=== PATIENT | male | born 1930 | race Caucasian/White ===

== ENCOUNTER 2018-04-22 13:04 | Inpatient (IN) | payer MEDICARE, OTHER ==
[~2018-04-22] VITALS: Ht 167.6 cm; Wt 82.5 kg
[2018-04-22] VITALS (15 sets, daily range): BP systolic 85–115; BP diastolic 48–67; BMI 28.8
--- NOTE | ~2018-04-22 | OP ---
PATIENT NAME: KB GERMAN MEDICAL RECORD: [id number] :[birth year] LOCATION:[facility] ADMISSION DATE:04/22/18 SURGEON: ELFEGO PERRY MD DATE OF OPERATION: 04/22/2018 DATE OF SERVICE: 04/22/2018 PROCEDURES: 1. PTCA stent LAD. 2. Left heart catheterization. 3. Selective coronary angiography. 4. Left ventriculogram. INDICATION: Acute anterior myocardial infarction. PROCEDURE IN DETAIL: After informed consent was obtained and after a detailed description of risks, benefits as well as alternative therapies, the patient elected to proceed with angiogram and angioplasty. The right femoral area was prepped and draped in normal sterile fashion. Right femoral artery was cannulated via modified Seldinger technique with placement of 6-Armenian sheath. All catheters exchanged through this sheath. FINDINGS: Left ventriculogram was performed in standard 30-degree RANDLE view reveals apical akinesis, ejection fraction in the 35% range. SELECTIVE CORONARY ANGIOGRAPHY: 1. Left main is with no significant angiographic disease. 2. Left anterior descending has 99.9% stenosis with OLIVA-1 flow. 3. The left circumflex has smco-ai-iwozmwnq irregularities, but no flow-limiting stenosis. 4. Right coronary has rpky-nk-vwotrhlw irregularities, but no flow-limiting stenosis. PTCA STENT OF THE LAD: The stent used was a 3.0 x 30 mm Integrity. Result was 0% residual stenosis. OVERALL IMPRESSION: Successful percutaneous transluminal coronary angioplasty stent of the left anterior descending going from 99.9% initial stenosis with OLIVA-1 flow to 0% residual stenosis with OLIVA-3 flow. TRANSINT:[id number] Voice Confirmation ID: [id number] DOCUMENT ID: [id number] ELFEGO PERRY MD at 1059 CC: [id number] DICTATION DATE: 04/22/18 1325 RN NEW GRAD: 04/22/18 1332 [place] [address]
--- NOTE | ~2018-04-22 | HEMODYNAMI ---
PATIENT:KB GERMAN MEDICAL RECORD: [id number] : [birth year] LOCATION:[facility] ADMISSION DATE: 04/22/18 Generatedon:04/22/201813:50 Patient name: KB GERMAN Patient #: [id number] SSN: : Date of study: 04/22/2018 Page: Of Hemodynamic Procedure Report Patient Data Patient Demographics Procedure consent was obtained First Name: KB Gender: Male Last Name: MAXI : 1930 Patient #: [id number] Age: 87 year(s) Race: Unknown Additional ID: [id number] Contact details [address]: [address] [place] [address] State: [place] City: [place] Zip code: [address] Admission Admission Data Admission Date: 04/22/2018 Admission Time: 13:04 Procedure Procedure Types Cath Procedure Diagnostic Procedure LHC LHC w/Coronaries PCI Procedure AMI/SVG/CENTER AISLE CASHIER PTCA or Stent AMI-BMS/JORGE Initial Procedure Description Procedure Date Procedure Date: 04/22/2018 Procedure Start Time: 13:10 Procedure End Time: 13:25 Procedure Staff Name Function Maritza Foss RT Monitor Aung Boothe MD Performing Physician Mary Kay Colvin RT Scrub Mar Hyman RN Manager Concrete Procedure Data Cath Procedure Fluoroscopy Diagnostic fluoroscopy Total fluoroscopy Time: 3.9 time: 3.9 min min Diagnostic fluoroscopy Total fluoroscopy dose: 802 dose: 802 mGy mGy Contrast Material Contrast Material Type Amount (ml) Isovue 300 104 Entry Location Entry Primary Successful Side Size Upsize Upsize Entry Closure Succes sful Closure Location (Fr) 1 (Fr) 2 (Fr) Remarks Device Remarks Femoral Right 6 Fr Exoseal artery Short Estimated blood loss: 5 ml Diagnostic catheters Device Type Used For End Catheter Placement MULTIPACK Pigtail 5 Fr LV Angiography catheter MULTIPACK JL 4.0 5Fr Left Coronary catheter Angiography MULTIPACK 3DRC 5Fr Procedure catheter Procedure Complications No complications Procedure Medications Medication Administration Route Dosage 0.9% NaCl I.V. 100 ml/hr Oxygen etCO2 Nasal cannula 2 l/min Lidocaine 2% added to field 20 Heparin Flush Bag added to field 2 bags (1000units/500ml NS) Heparin Bolus I.V. 4000 units Versed I.V. 2 mg Fentanyl I.V. 50 mcg Versed I.V. 1 mg Integrilin (Bolus I.V. 7.3 ml 2mg/ml) Hemodynamics Rest Heart Rate: 84 (bpm) Snapshots Pre Cath Intra NCS Post Cath Vital Signs Time Heart Resp SPO2 etCO2 NIBP Rhythm Pain Sedation Rate (ipm) (%) (mmHg) (mmHg) Status Level (bpm) 13:06:00 84 10 98 48 119/71(94) NSR 0 (11) 10(A) , No pain 13:10:16 81 12 100 45.1 120/64(84) NSR 0 (11) 10(A) , No pain 13:15:13 89 13 100 44.3 107/65(84) NSR 0 (11) 10(A) , No pain 13:19:23 88 22 98 35 102/68(85) NSR 0 (11) 10(A) , No pain 13:23:30 87 16 92 46.6 119/71(91) NSR 0 (11) 10(A) , No pain 13:37:08 90 9 96 44.3 112/71(81) NSR 0 (11) 10(A) , No pain Medications Time Medication Route Dose Verified Delivered Reason Notes Effectiveness by by 12:53:26 0.9% NaCl I.V. 100 Aung Mar used for ml/hr Tl Hyman brownfield program coordinator 12:53:33 Oxygen etCO2 2 Aung Mar used for Nasal l/min Tl Hyman procedure cannula RN 12:53:39 Lidocaine 2% added 20ml Aung Horan for local to vial Tl Boothe MD anesthetic field 12:53:44 Heparin Flush added 2 Aung Aung used for Bag to bags Tl Boothe MD procedure (1000units/500ml field NS) 13:05:32 Heparin Bolus I.V. 4000 Aung Mar for verif ied units Tl Hyman anticoagulation with Dr. LONDON Boothe 13:08:38 Integrilin I.V. 7.3 Aung Mar for waste d (Bolus 2mg/ml) ml Tl Hyman anticoagulation 2.7mL RN 13:10:10 Versed I.V. 2 mg Aung Manuel for sedation Tl yHman RN 13:10:17 Fentanyl I.V. 50 Aung Manuel for sedation mcg Tl Hyman RN 13:13:31 Versed I.V. 1 mg Aung Manuel for sedation Tl Hyman RN Procedure Log Time Note 12:40:26 Maritza Foss RT(R) sent for patient. Start room use. 12:53:26 0.9% NaCl 100 ml/hr I.V. was administered by Mar Hyman RN; used for procedure; 12:53:33 Oxygen 2 l/min etCO2 Nasal cannula was administered by Mar Hyman RN; used for procedure; 12:53:39 Lidocaine 2% 20ml vial added to field was administered by Aung Boothe MD; for local anesthetic; 12:53:44 Heparin Flush Bag (1000units/500ml NS) 2 bags added to field was administered by Aung Boothe MD; used for procedure; 12:59:48 Time tracking: Regular hours (M-F 7:00 - 5:00) 12:59:52 Plan of Care:Hemodynamics will remain stable., Cardiac rhythm will remain stable., Comfort level will be maintained., Respiratory function will remain adequate., Patient/ family verbilizes understanding of procedure., Procedure tolerated without complication., Recovers from procedure without complications.. 12:59:57 Patient received from ED to CCL 1 Alert and oriented. Tansferred to table in Supine position. 13:00:04 Warm blankets applied, and sarha hugger turned on for patient comfort. 13:00:05 Correct patient and procedure confirmed by team. 13:00:06 Signed procedure consent form obtained from patient. 13:00:07 ECG and BP/O2 sat monitors applied to patient. 13:04:58 Vital chart was started 13:05:32 Heparin Bolus 4000 units I.V. was administered by Mar Hyman RN; for anticoagulation; verified with Dr. Boothe 13:05:41 Baseline sample Acquired. 13:05:42 Full Disclosure recording started 13:05:46 H&P Date Dictated: 04/22/2018 New H&P dictated by physician.. 13:05:47 Pre-procedure instructions explained to patient. 13:05:50 Pre-op teaching completed and patient verbalized understanding. 13:05:51 Family unavailable. 13:05:53 Patient NPO since Breakfast. 13:05:56 Is the patient allergic to Iodine/contrast media? No. 13:05:57 Was the patient premedicated? No 13:06:00 Is patient on blood thinner?Yes 13:06:05 ACC The patient was administered the following blood thiners within the last 24 hours: ACCPlavix, ACCHeparin 13:06:07 Patient diabetic? Unknown. 13:06:10 Previous problem with sedation/anesthesia? No ? 13:06:13 Snore? Unknown 13:06:14 Sleep apnea? Unknown 13:06:16 Deviated septum? Unknown 13:06:17 Opens mouth fully? Unknown 13:06:19 Sticks out tongue? Unknown 13:06:21 Airway obstruction? Unknown ? 13:06:24 Dentures? Unknown ? 13:06:39 Pre procedure: right dorsailis pedis pulse 1+ Palpable, but thready & weak; easily obliterated 13:06:41 Pre procedure: left dorsailis pedis pulse 1+ Palpable, but thready & weak; easily obliterated 13:06:43 Patient pain scale 0/10 ?. 13:06:48 IV patent on arrival in left forearm with 0.9% NaCl at [facility]. 13:06:50 Lab results completed and on chart. 13:06:54 Right groin area was prepped with chlora-prep and draped in sterile fashion 13:06:56 Zero performed for pressure channel P1 13:07:06 Sharps counted by scrub and verified by R.N. 13:07:06 Alarms reviewed by R. N. 13:07:12 Physician arrived 13:07:13 Final Timeout: patient, procedure, and site verified with staff and physician. All members of the team are in agreement. 13:07:13 --------ALL STOP TIME OUT------ 13:07:22 Right groin site verified by team. 13:07:24 Physical assessment completed. ASA score P 2 - A patient with mild systemic disease as per Aung Boothe MD. 13:07:28 Sedation plan: IV Moderate Sedation Medication:Versed, Fentanyl 13:08:38 Integrilin (Bolus 2mg/ml) 7.3 ml I.V. was administered by Mar Hyman RN; for anticoagulation; wasted 2.7mL 13:09:24 Use device set Femoral Dx 13:09:25 ACIST Syringe (75822) opened to sterile field. 13:09:26 Medline Cath Pack ([id number]) opened to sterile field. 13:09:26 Bag Decanter (2002S) opened to sterile field. 13:09:27 DIAGNOSTIC WIRE .035 260cm J wire (464928) opened to sterile field. 13:09:28 ACIST Hand Control (44479) opened to sterile field. 13:09:29 ACIST Manifold (00069) opened to sterile field. 13:09:30 DIAGNOSTIC Multipack 5Fr catheter set ([id number]) opened to sterile field. 13:09:31 Tegaderm 4 x 4 (1626W) opened to sterile field. 13:09:55 INFLATOR Merit BasixCompak (QX4415) opened to sterile field. 13:09:55 CHOICE PT Extra Support 182cm wire ([id number]) opened to sterile field. 13:09:56 SHEATH 6FR [place] (RQE077) opened to sterile field. 13:10:01 Procedure started. 13:10:04 Local anesthetic to right femoral artery with Lidocaine 2% by Aung Boothe MD.INITIAL ACCESS ONLY 13:10:10 Versed 2 mg I.V. was administered by Mar Hyman RN; for sedation; 13:10:13 A 6 Fr Short sheath was inserted into the Right Femoral artery 13:10:17 Fentanyl 50 mcg I.V. was administered by Mar Hyman RN; for sedation; 13:10:25 A MULTIPACK Pigtail 5 Fr catheter was advanced over the wire and used for LV Angiography. 13:10:34 EF : 35 % 13:10:36 LV gram done using RANDLE 13:10:38 Injector settings: Ml/sec: 5, Volume: 15, 13:10:40 Catheter removed. 13:10:55 A MULTIPACK JL 4.0 5Fr catheter was advanced over the wire and used for Left Coronary Angiography. 13:11:28 LCA angiography performed. 13:11:31 Injector settings: Ml/sec: 3, Volume: 6, 13:11:56 Catheter removed. 13:12:42 A MULTIPACK 3DRC 5Fr catheter was advanced over the wire and used for Procedure. 13:12:48 RCA angiography performed. 13:12:50 Catheter removed. 13:13:31 Versed 1 mg I.V. was administered by Mar Hyman RN; for sedation; 13:13:35 GUIDE 6FR XBLAD 3.5 catheter ([id number]) opened to sterile field. 13:14:09 6 Fr xblad 3.5 guide catheter was inserted over the wire 13:14:53 choice pt wire advanced. 13:15:14 Wire advanced across lesion. 13:16:08 Inflate balloon Inflation number: 1 A EUPHORA 2.5 x 15 Balloon ([id number]) was prepped and advanced across the Prox LAD, then inflated to 9 JANELLE for 0:10 (min:sec). 13:16:14 Inflation number: 2 The EUPHORA 2.5 x 15 Balloon ([id number]) was reinflated across the Prox LAD, to 9 JANELLE for 0:10 (min:sec). 13:16:36 Inflation number: 3 The EUPHORA 2.5 x 15 Balloon ([id number]) was reinflated across the Prox LAD, to 15 JANELLE for 0:10 (min:sec). 13:17:07 Balloon removed over the wire. 13:18:08 Place stent Inflation Number: 4 A INTEGRITY RX 3.0 x 30 stent ([id number]) was prepped and advanced across the Prox LAD. The stent was deployed at 17 JANELLE for 0:10 (min:sec). 13:21:52 Stent catheter was removed intact over wire. 13:21:53 Wire removed. 13:21:54 Guide catheter removed. 13:22:00 EXOSEAL 6Fr (EX600) opened to sterile field. 13:22:10 Sheath removed intact; hemostasis achieved with Exoseal to the Right Femoral artery. 13:22:12 Procedure ended.(Physican Out) 13:23:14 Fluoroscopy time 03.90 minutes. 13:23:19 Fluoroscopy dose: 802 mGy 13:23:19 Flurop Dose total: 802 13:23:24 Contrast amount:Isovue 300 104ml. 13:23:26 Sharps counted by scrub and verified by R.N. 13:23:27 Insertion/operative site no bleeding no hematoma. 13:23:32 Post-op/insertion site Right Femoral artery dressed using a 4 x 4 and Tegaderm. 13:23:41 Post right femoral artery:stable 13:23:43 Post Procedure Pulses reassessed and unchanged 13:23:45 Post procedure rhythm: unchanged. 13:24:05 Estimated blood loss: 5 ml 13:24:07 Patient needs reinforcement of post procedure teaching. 13:24:07 Post procedure instruction explained to patient.Patient verbalizes understanding. 13:25:10 Procedure type changed to Cath procedure, Diagnostic procedure, LHC, LHC w/Coronaries, PCI procedure, AMI/SVG/CENTER AISLE CASHIER PTCA or Stent, AMI-BMS/JORGE Initial 13:25:11 Procedure and supply charges have been captured, reviewed, submitted and are correct. 13:25:15 Procedure Complication : No complications 13:25:18 See physician's report for complete and final results. 13:25:18 Vital chart was stopped 13:25:21 Report given to ICU. 13:25:24 Patient transfered to ICU with Stretcher. 13:25:26 Full Disclosure recording stopped 13:25:26 Procedure ended. 13:25:56 ACC-PCI Only Patient was given prescriptions, or instructed by Aung Boothe MD to start/continue the following medications upon discharge: Plavix 13:25:58 End room use (Document Last) Intervention Summary Intervention Notes Time ActionType Lesion and Equipment Action# Pressure Duration Attributes Used 13:16:08 Inflate Prox LAD EUPHORA 2.5 1 9 00:10 balloon x 15 Balloon ([id number]) 13:16:14 Reinflate Prox LAD EUPHORA 2.5 2 9 00:10 balloon x 15 Balloon ([id number]) 13:16:36 Reinflate Prox LAD EUPHORA 2.5 3 15 00:10 balloon x 15 Balloon ([id number]) 13:18:08 Place stent Prox LAD INTEGRITY RX 4 17 00:10 3.0 x 30 stent ([id number]) Device Usage Item Name Manufacture Quantity Catalog Number Hospital Part Current Mini [facility] Lot# / Charge Number Stock Stock Serial# Code ACIST Acist 1 90863 474951 048580 408890 20 Splitforce ([id number] Semicon[employer] Manufacturing Limited Bag Decanter Microtek 1 559179 07104 135567 5 () Medical Inc. Medline Cath Medline 1 [id number] 836224 95390 759581 5 Pack ([id number]) DIAGNOSTIC St [place] 1 647707 759736 873396 889451 30 WIRE .035 260cm J wire (122177) ACIST Hand Acist 1 82751 275297 300917 708553 5 Control Medical (11061) Systems Inc ACIST Acist 1 97784 617673 336529 330092 5 Manifold Medical (55220) Systems Inc DIAGNOSTIC Cardinal 1 MX7673 253745 18316 366484 30 Multipack The Mad Video 5Fr catheter set (ZY3723) Tegaderm 4 x 3M 1 1626W 302407 303072 752828 5 4 (1626W) CHOICE PT [place] 1 [id number] 498860 966439 279625 5 Extra Scientific Support 182cm wire ([id number]) INFLATOR Studentbox 1 PS6981 731089 228633 630829 15 Casabi BasixCompak (SG7895) SHEATH 6FR Terumo 1 CKZ948 521597 227213 147279 40 [place] (NJF541) MULTIPACK Cardinal 1 728049 5 Pigtail 5 Fr Health catheter MULTIPACK JL Cardinal 1 437917 5 4.0 5Fr Health catheter MULTIPACK Cardinal 1 506004 5 3DRC 5Fr Health catheter GUIDE 6FR Cardinal 1 [id number] 790808 082275 364042 10 XBLAD 3.5 Health catheter ([id number]) EUPHORA 2.5 Medtronic 1 [id number] 622732 351408 312235 5 [id number] x 15 Balloon ([id number]) INTEGRITY RX Medtronic 1 [id number] 173867 216305 981132 5 [id number] 3.0 x 30 stent ([id number]) EXOSEAL 6Fr Cardinal 1 EX600 853558 203055 146708 10 (EX600) Health Signature Audit [place] Stage Time Signature Unsigned Intra-Procedure 04/22/2018 Maritza Foss 1:50:16 PM RT(R) Signatures Monitor : Maritza Foss RT Signature : Date : Time : [place] [address] [place] [address]
--- NOTE | ~2018-04-22 | HP ---
PATIENT: KB GERMAN MEDICAL RECORD: [id number] ACCOUNT: [id number] [facility] [birth year] AD[facility]ION DATE: 04/22/18 PCP: No PCP HISTORY AND PHYSICAL EXAMINATION DIAGNOSES: 1. Acute anterior myocardial infarction. 2. Coronary artery disease. HISTORY OF PRESENT ILLNESS: Mr. German been having chest pain on and off since last Thursday. His chest pain worsened today, he presented to [facility]. EKG is compatible with an acute anterior myocardial infarction. He is initially pain free after heparin, nitro. His pain then returned, he was transported here. He is still having chest pain. He still has ST elevation on his EKG. PHYSICAL EXAMINATION: GENERAL APPEARANCE: Well-nourished, well-developed, appears stated age. Level of distress, comfortable. PSYCHIATRIC: Mental status, alert, normal affect. Orientation, oriented to time, place and person. EYES: Lids and conjunctiva, noninjected. No discharge, no pallor. ENT: Lips, teeth, gums, normal dentition. Oropharynx, no cyanosis, no pallor. NECK: Carotid arteries, bilateral normal upstroke, no bruits, no thrills. JUGULAR VEINS: No jugular venous pressure or distention. CERVICAL LYMPH NODES: Nontender, nonenlarged. THYROID: Not enlarged. Nontender. No nodules. LUNGS: Respiratory effort, unlabored. CHEST: Normal curvature. No thoracic deformity. No chest wall tenderness. Percussion, resonant. Auscultation, clear. No wheezes, no rales, no rhonchi. CARDIOVASCULAR: Precordial exam, nondisplaced. No heaves or pericardial thrills. Rate and rhythm, regular. Heart sounds, normal S1, normal S2. No S3, no gallop, no rub. Systolic murmur, not heard. Diastolic murmur, not heard. EXTREMITIES: No cyanosis, no edema. Peripheral pulses, full and equal in all extremities, except as noted. No bruits appreciated. ABDOMEN: Soft, nondistended. Normal aorta. No bruit. Nontender. No masses. Liver, nontender, no hepatomegaly. Spleen, nontender, no splenomegaly. MUSCULOSKELETAL: No joint tenderness. No joint swelling. No erythema. NEUROLOGICAL: Normal gait, normal strength, normal tone. SKIN: Warm and dry. OVERALL IMPRESSION: Acute anterior myocardial infarction. We will proceed with coronary angiography. Further care depends upon findings of the angiography. TRANSINT:[id number] Voice Confirmation ID: [id number] DOCUMENT ID: [id number] HISTORY AND PHYSICAL [id number] KB GERMAN JEFFREY MD at 1059 CC: [id number] DICTATION DATE: 04/22/18 1301 MANAGER FOREIGN: 04/22/18 1321 ADM IN [place] [address] [place] [address]
--- NOTE | ~2018-04-22 | DS ---
PATIENT:KB GERMAN :[birth year] MEDICAL RECORD: [id number] DISCHARGE SUMMARY ADMISSION DATE: 04/22/18 DISCHARGE DATE: 04/24/18 DATE OF DISCHARGE: 04/24/2018 DISCHARGE DIAGNOSES: 1. Angina. 2. Coronary artery disease. 3. Percutaneous transluminal coronary angioplasty stent to the left anterior descending this admission. HOSPITAL COURSE: Mr. German presents with anginal symptomatology, found to have significant disease of the LAD, underwent successful PTCA stent of the LAD, discharged home with the addition of aspirin and Plavix to his medical regimen. Follow up with [facility] in 1 month. TRANSINT:[id number] Voice Confirmation ID: [id number] DOCUMENT ID: [id number] ELFEGO PERRY MD CC: [id number] DICTATION DATE: 05/18/18929 OUTLET MANAGER: 05/19/18 0006 DIS IN 04/24/18 [place] [address] [place] [address]
--- NOTE | ~2018-04-22 | MORECARE ---
CASE MANAGEMENT DISCHARGE SUMMARY PATIENT: KB GERMAN UNIT: [id number] ADM DATE: 04/22/18 AGE: 87 : [birth year] SEX: M ROOM/BED: D.2119 AUTHOR: NOHEMI DOMINGO PHYSICIAN: REFERRING PHYSICIAN: ELFEGO PERRY MD DATE OF SERVICE: 04/26/18 Discharge Plan Patient Name: KB GERMAN Facility: [facility] : 1930 Planned Disposition: Home Anticipated Discharge Date: 04/24/18 Discharge Date: 04/24/2018 Expected LOS: 2 Initial Reviewer: [email or web address] Initial Review Date: 04/22/2018 Generated: 04/26/18 10:07 am Comments DCP- Discharge Planning Updated by [email or web address]: Dilia Mayer on 04/23/18 4:[address] Patient Name: KB GERMAN Admission Status: Elective Accout number: [id number] Admission Date: 04-22-2018 : 1930 Admission Diagnosis: Attending: NICK PERRY Current LOS: 1 Anticipated DC Date: Planned Disposition: Home Primary Insurance: MEDICARE A & B Discharge Planning Comments: CM MET WITH PATIENT AT [facility]. PATIENT STATES HE PLANS ON RETURNING TO HIS HOME IN WHICH HE LIVES WITH HIS DAUGHTER. PATIENT DENIES ANY DISCHARGE NEEDS. IMM EXPLAINED AND SERVED 04/23/18 @ 1720 CM WILL CONTINUE TO FOLLOW AND ASSIST NEEDED WITH DISCHARGE PLANNING / NEEDS Plasma Cutting Machine Operator: Dilia Mayer Coverage Notice Reviewer: [email or web address] - Dilia Mayer Notice Issued Date-Time: 04/23/2018 17:20 Notice Type: IM Discharge Notice Notice Delivered To: Patient Relationship to Patient: Self Nutrition Consultant Name: Delivery Method: HAND - Hand Delivered Cate Days: Prior Verbal Notification: Recipient Understood Notice: Yes Recipient Signature: Yes Med Rec Note Co-signed by Attending: Coverage Notice Comment: Last DP export: 04/23/18 4:25 p Patient Name: KB GERMAN Page [phone] at 0908 All edits/amendments must be made on the electronic document DICTATION DATE: 04/26/18 0907 RAILROAD SIGNAL TECHNICIAN: MONICA 04/26/18906 RPT#: [id number] DC DATE:04/24/18 STATUS: DIS IN [facility] [address] [place] [address] END OF REPORT
--- NOTE | ~2018-04-22 | MORECARE ---
CASE MANAGEMENT DISCHARGE SUMMARY PATIENT: KB GERMAN UNIT: [id number] ADM DATE: 04/22/18 AGE: 87 : [birth year] SEX: M [facility] AUTHOR: NOHEMI DOMINGO PHYSICIAN: REFERRING PHYSICIAN: ELFEGO PERRY MD DATE OF SERVICE: 04/23/18 Discharge Plan Patient Name: KB GERMAN Facility: [facility] : 1930 Planned Disposition: Home Anticipated Discharge Date: Discharge Date: Expected LOS: Initial Reviewer: [email or web address] Initial Review Date: 04/22/2018 Generated: 04/23/18 6:25 pm Comments DCP- Discharge Planning Updated by [email or web address]: Dilia Mayer on 04/23/18 4:[address] Patient Name: KB GERMAN Admission Status: Elective Accout number: [id number] Admission Date: 04-22-2018 : 1930 Admission Diagnosis: Attending: NICK PERRY Current LOS: 1 Anticipated DC Date: Planned Disposition: Home Primary Insurance: MEDICARE A & B Discharge Planning Comments: CM MET WITH PATIENT AT [facility]. PATIENT STATES HE PLANS ON RETURNING TO HIS HOME IN WHICH HE LIVES WITH HIS DAUGHTER. PATIENT DENIES ANY DISCHARGE NEEDS. IMM EXPLAINED AND SERVED 04/23/18 @ 1720 CM WILL CONTINUE TO FOLLOW AND ASSIST NEEDED WITH DISCHARGE PLANNING / NEEDS Mobile Home Technician: Dilia Mayer Coverage Notice Reviewer: [email or web address] - Dilia Mayer Notice Issued Date-Time: 04/23/2018 17:20 Notice Type: IM Discharge Notice Notice Delivered To: Patient Relationship to Patient: Self Coating Mixer Tender Name: Delivery Method: HAND - Hand Delivered Cate Days: Prior Verbal Notification: Recipient Understood Notice: Yes Recipient Signature: Yes Med Rec Note Co-signed by Attending: Coverage Notice Comment: Patient Name: KB GERMAN Page [phone] at 1725 All edits/amendments must be made on the electronic document DICTATION DATE: 04/23/18 172 ACETONE BUTTON PASTER: MONICA 04/23/18 172 RPT#: [id number] DC DATE: STATUS: ADM IN [facility] [address] [place] [address] END OF REPORT
[2018-04-22] MEDS ORDERED: NORVASC5 MG PO (16:33)
[2018-04-22] MEDS ORDERED: PRAVACHOL20 MG PO (16:34)
[2018-04-22] MEDS ORDERED: PRINIVIL20 MG PO (16:34)
[2018-04-22] MEDS ORDERED: SYNTHROID50 MCG PO (16:35)
[2018-04-22] MEDS ORDERED: HYDROCHLOROTHIA25 MG PO (16:35)
[2018-04-22] MEDS ORDERED: POTASSIUM CHLO10 ME1 PO (16:35)
[2018-04-22] MEDS ORDERED: BASAGLAR K100 UNIT/1 SC (16:37)
[2018-04-22] MEDS ORDERED: CASODEX50 MG (16:38)
[2018-04-23] VITALS (17 sets, daily range): BP systolic 84–105; BP diastolic 48–63; Ht 167.6 cm; Wt 82.5 kg
[2018-04-24 02:11] VITALS: BP 102/65
[2018-04-24 06:40] VITALS: BP 119/67
[2018-04-24 08:53] VITALS: BP 111/65
[2018-04-24] MEDS ORDERED: LOPRESSOR25 MG PO (12:10)
[2018-04-24] MEDS ORDERED: PLAVIX75 MG PO (12:11)
== END 2018-04-24 13:26 | disposition home or self-care (01) | DRG 249 ==
LOC: D.CATH 13:04 → D.CVICU 14:14 → D.M2 04-23 19:59
PROVIDERS: Internal Medicine Interventional Cardiology
PROC: B2111ZZ Fluoroscopy of Multiple Coronary Arteries using Low Osmolar Contrast (ICD-10-PCS; 2018-04-22)
PROC: B2151ZZ Fluoroscopy of Left Heart using Low Osmolar Contrast (ICD-10-PCS; 2018-04-22)
PROC: 02703DZ Dilation of Coronary Artery, One Artery with Intraluminal Device, Percutaneous Approach (ICD-10-PCS; principal; 2018-04-22 12:40)
PROC: 4A023N7 Measurement of Cardiac Sampling and Pressure, Left Heart, Percutaneous Approach (ICD-10-PCS; 2018-04-22 12:40)
DX: I21.09 ST elevation (STEMI) myocardial infarction involving other coronary artery of anterior wall (principal); I25.119 Atherosclerotic heart disease of native coronary artery with unspecified angina pectoris

== ENCOUNTER 2018-08-04 09:08 | Outpatient (CLI) | payer MEDICARE, OTHER ==
[~2018-08-04] VITALS: Ht 167.6 cm; Wt 79.5 kg
--- NOTE | ~2018-08-04 | HEMODYNAMI ---
PATIENT:KB GERMAN MEDICAL RECORD: [id number] : [birth year] LOCATION:[facility] ADMISSION DATE: 08/04/18 Generatedon:08/04/201811:07 Patient name: KB GERMAN Patient #: [id number] SSN: : Date of study: 08/04/2018 Page: Of Hemodynamic Procedure Report Patient Data Patient Demographics Procedure consent was obtained First Name: KB Gender: Male Last Name: MAXI : 1930 Patient #: [id number] Age: 87 year(s) Race: Unknown Additional ID: [id number] Contact details [address]: [address] [place] [address] State: [place] City: [place] Zip code: [address] Past Medical History Allergies: No known allergies Admission Admission Data Admission Date: 08/04/2018 Admission Time: 9:08 Admit Source: Other Height (in.): 66 BSA: 1.91 (m2) Height (cm.): 167.64 BMI: 29.05 (kg/m2) Weight (lbs.): 180 Weight (kg.): 81.65 Lab Results Lab Result Date: 08/04/2018 Lab Result Time: 0:00 Biochemistry Name Units Result Min Max BUN mg/dl 31 --(----)-* 7 18 Creatinine mg/dl 1.6 --(----)-* 0.6 1.3 CBC Name Units Result Min Max Hemoglobin g/dl 14.2 --(*---)-- 13.5 17.5 Procedure Procedure Types Cath Procedure Diagnostic Procedure C [facility] w/Coronaries Sedation Charges Moderate Sedation up to 15 minutes PCI Procedure Coronary Stent Coronary Stent Initial Procedure Description Procedure Date Procedure Date: 08/04/2018 Procedure Start Time: 10:41 Procedure End Time: 11:04 Procedure Staff Name Function Aung Boothe MD Performing Physician Teresa Rivas RT Monitor Siddhartha Moncada RT Scrub Mar Hyman RN Nurse Procedure Data Cath Procedure Fluoroscopy Diagnostic fluoroscopy Total fluoroscopy Time: 8 time: 8 min min Diagnostic fluoroscopy Total fluoroscopy dose: dose: 1219 mGy 1219 mGy Contrast Material Contrast Material Type Amount (ml) Isovue 300 127 Entry Location Entry Primary Successful Side Size Upsize Upsize Entry Closure Succes sful Closure Location (Fr) 1 (Fr) 2 (Fr) Remarks Device Remarks Femoral Right 5 Fr 7 Fr Exoseal artery Short Estimated blood loss: 10 ml Diagnostic catheters Device Type Used For End Catheter Placement MULTIPACK Pigtail 5 Fr Procedure catheter MULTIPACK JL 4.0 5Fr Procedure catheter MULTIPACK 3DRC 5Fr Procedure catheter Procedure Complications No complications Procedure Medications Medication Administration Route Dosage 0.9% NaCl I.V. 100 ml/hr Oxygen etCO2 Nasal cannula 2 l/min Lidocaine 2% added to field 20 Heparin Flush Bag added to field 2 bags (1000units/500ml NS) Versed I.V. 2 mg Fentanyl I.V. 50 mcg Heparin Bolus I.V. 4000 units Integrilin (Bolus I.V. 7.3 ml 2mg/ml) Plavix P.O. 600 mg Hemodynamics Rest BSA: 1.91 (m2) O2 Consumption: Estimated: 213.16 (ml/min) O2 Consumption indexed : Estimated:111.6 (ml/min/m) Heart Rate: 66 (bpm) Snapshots Pre Cath Intra NCS Post Cath Vital Signs Time Heart Resp SPO2 etCO2 NIBP (mmHg) Rhythm Pain Sedation Rate (ipm) (%) (mmHg) Status Level (bpm) 10:25:31 75 17 96 21 128/70(104) NSR 0 (11) 10(A) , No pain 10:29:47 66 17 98 26.9 131/70(105) NSR 0 (11) 10(A) , No pain 10:34:01 68 24 97 30 121/78(104) NSR 0 (11) 10(A) , No pain 10:38:13 65 15 98 30 113/74(95) NSR 0 (11) 10(A) , No pain 10:42:23 68 10 97 34.4 121/67(99) NSR 0 (11) 9(A) , No pain 10:46:37 68 10 98 31.4 116/64(86) NSR 0 (11) 9(A) , No pain 10:50:48 69 10 95 25.4 113/64(91) NSR 0 (11) 9(A) , No pain 10:54:58 70 11 96 33.6 119/70(89) NSR 0 (11) 9(A) , No pain 10:59:12 69 20 96 41.1 124/66(94) NSR 0 (11) 9(A) , No pain 11:03:28 71 11 96 38.9 117/64(93) NSR 0 (11) 10(A) , No pain Medications Time Medication Route Dose Verified Delivered Reason Notes Effectiveness by by 10:24:29 0.9% NaCl I.V. 100 Aung Mar used for ml/hr Tl Hyman superintendent terminal 10:24:35 Oxygen etCO2 2 Aung Mar used for Nasal l/min Tl Hyman procedure cannula RN 10:24:40 Lidocaine 2% added 20ml Aung Mar used for to vial Tl Hyman procedure field RN 10:24:45 Heparin Flush added 2 Aung Mar used for Bag to bags Tl Hyman procedure (1000units/500ml field RN NS) 10:41:38 Versed I.V. 2 mg Aung Mar for sedation Tl Hyman RN 10:41:43 Fentanyl I.V. 50 Aung Mar for sedation mcg Tl Hyman RN 10:47:03 Heparin Bolus I.V. 4000 Aung Mar for verif ied units Tl Hyman anticoagulation with Dr. [place] 10:47:20 Integrilin I.V. 7.3 Aung Mar for waste d (Bolus 2mg/ml) ml Tl Hyman anticoagulation 2.7mL RN 10:47:35 Plavix P.O. 600 Aung Mar for sedation waste d mg Tl Hyman 2.7mL out patient therapist Log Time Note 10:07:15 Signed procedure consent form obtained from patient. 10:07:20 Admit Source: Other 10:07:46 Diagnostic Cath status Elective 10:07:50 Siddhartha Moncada RT(R) sent for patient. Start room use. 10:08:04 Time tracking: Regular hours (M-F 7:00 - 5:00) 10:08:09 Plan of Care:Hemodynamics will remain stable., Cardiac rhythm will remain stable., Comfort level will be maintained., Respiratory function will remain adequate., Patient/ family verbilizes understanding of procedure., Procedure tolerated without complication., Recovers from procedure without complications.. 10:12:21 H&P Date Dictated: 08/02/2018 Within 30 days and on chart., H&P Addendum completed by physician on day of procedure. (MUST COMPLETE FOR ALL OUTPATIENTS). 10:12:33 Patient Height : 66 inches 10:12:44 Patient Weight : 180 lbs 10:12:53 Patient allergic to No known allergies 10:14:11 Lab Result : BUN 31 mg/dl 10:14:11 Lab Result : Creatinine 1.6 mg/dl 10:14:11 Lab Result : Hemoglobin 14.2 g/dl 10:16:10 Patient received from Pre/Post Procedure Room to [facility] 2 Alert and oriented. Tansferred to table in Supine position. 10:16:12 Warm blankets applied, and sarah hugger turned on for patient comfort. 10:16:12 Correct patient and procedure confirmed by team. 10:16:16 ECG and BP/O2 sat monitors applied to patient. 10:24:21 Vital chart was started 10:24:29 0.9% NaCl 100 ml/hr I.V. was administered by Mar Hyman RN; used for procedure; 10:24:35 Oxygen 2 l/min etCO2 Nasal cannula was administered by Mar Hyman RN; used for procedure; 10:24:40 Lidocaine 2% 20ml vial added to field was administered by Mar Hyman RN; used for procedure; 10:24:45 Heparin Flush Bag (1000units/500ml NS) 2 bags added to field was administered by Mar Hyman RN; used for procedure; 10:27:36 Baseline sample Acquired. 10:27:39 Rhythm: sinus rhythm 10:27:40 Full Disclosure recording started 10:27:40 Pre-procedure instructions explained to patient. 10:27:41 Pre-op teaching completed and patient verbalized understanding. 10:27:42 Family in waiting room. 10:27:44 Patient NPO since Midnight. 10:27:46 Is patient on blood thinner?No 10:27:47 Patient diabetic? Yes. 10:27:48 If diabetic: On Metformin? No 10:27:52 Previous problem with sedation/anesthesia? No ? 10:27:56 Snore? Yes 10:27:59 Sleep apnea? No 10:28:00 Deviated septum? No 10:28:01 Opens mouth fully? Yes 10:28:02 Sticks out tongue? Yes 10:28:04 Airway obstruction? No ? 10:28:08 Dentures? Yes IN TIGHT 10:28:12 Pre procedure: right dorsailis pedis pulse 1+ Palpable, but thready & weak; easily obliterated 10:28:18 IV patent on arrival in left antecubital with 0.9% NaCl at [facility] 10:28:21 Lab results completed and on chart. 10:28:24 Right groin area was prepped with chlora-prep and draped in sterile fashion 10:28:24 Alarms reviewed by R. N. 10:28:25 Sharps counted by scrub and verified by R.N. 10:28:27 Use device set Femoral Dx 10:28:28 ACIST Syringe (64805) opened to sterile field. 10:28:28 Bag Decanter (2002S) opened to sterile field. 10:28:29 ACIST Hand Control (57583) opened to sterile field. 10:28:30 ACIST Manifold (33054) opened to sterile field. 10:28:32 Tegaderm 4 x 4 (1626W) opened to sterile field. 10:28:34 Medline Cath Pack ([id number]) opened to sterile field. 10:28:34 DIAGNOSTIC WIRE .035 260cm J wire (089577) opened to sterile field. 10:28:36 DIAGNOSTIC Multipack 5Fr catheter set (RS0079) opened to sterile field. 10:28:37 SHEATH 5FR [place] (BOV402) opened to sterile field. 10:39:34 --------ALL STOP TIME OUT------ 10:39:34 Final Timeout: patient, procedure, and site verified with staff and physician. All members of the team are in agreement. 10:39:40 Right groin site verified by team. 10:39:42 Fire Safety Assessment: A--An alcohol-based skin anteseptic being used preoperatively., C--Open oxygen or nitrous oxide is being used., D--An ESU, laser, or fiber-optic light is being used. 10:39:46 Physical assessment completed. ASA score P 2 - A patient with mild systemic disease as per Aung Boothe MD. 10:39:48 Sedation plan: IV Moderate Sedation Medication:Versed, Fentanyl 10:39:52 Procedure started. 10:41:21 Zero performed for pressure channel P1 10:41:28 Local anesthetic to right femoral artery with Lidocaine 2% by Aung Boothe MD.INITIAL ACCESS ONLY 10:41:33 Zero performed for pressure channel P1 10:41:38 Versed 2 mg I.V. was administered by Mar Hyman RN; for sedation; 10:41:43 Fentanyl 50 mcg I.V. was administered by Mar Hyman RN; for sedation; 10:41:50 A 5 Fr sheath was inserted into the Right Femoral artery 10:42:12 A MULTIPACK Pigtail 5 Fr catheter was advanced over the wire and used for Procedure. 10:42:16 LV gram done using RANDLE 10:42:23 Injector settings: Ml/sec: 10, Volume: 20, 10:42:47 EF : 40 % 10:42:48 Catheter removed. 10:42:55 A MULTIPACK JL 4.0 5Fr catheter was advanced over the wire and used for Procedure. 10:43:54 LCA angiography performed. 10:44:09 Catheter removed. 10:44:14 A MULTIPACK 3DRC 5Fr catheter was advanced over the wire and used for Procedure. 10:44:41 RCA angiography performed. 10:44:41 Catheter removed. 10:44:51 INFLATOR Merit BasixCompak (FV1875) opened to sterile field. 10:45:04 CHOICE PT Extra Support J 300cm guide wire ([id number]) opened to sterile field. 10:45:16 SHEATH 7FR [place] (QXT668) opened to sterile field. 10:45:58 GUIDE 7FR EBU 3.5 catheter ([id number]) opened to sterile field. 10:46:06 Sheath upsized to a 7 Fr Short. 10:47:03 Heparin Bolus 4000 units I.V. was administered by Mar Hyman RN; for anticoagulation; verified with Dr. Boothe 10:47:20 Integrilin (Bolus 2mg/ml) 7.3 ml I.V. was administered by Mar Hyman RN; for anticoagulation; wasted 2.7mL 10:47:35 Plavix 600 mg P.O. was administered by Mar Hyman RN; for sedation; wasted 2.7mL 10:47:40 7 Fr EBU 3.5 guide catheter was inserted over the wire 10:48:35 Guide Catheter removed. unable to cannulate vessel. 10:48:41 GUIDE 7FR EBU 4.0 catheter ([id number]) opened to sterile field. 10:48:54 7 Fr EBU 4 guide catheter was inserted over the wire 10:49:26 CHOICE ES 300 wire advanced. 10:50:41 Wire advanced across lesion. 10:50:50 Inflate balloon Inflation number: 1 A EMERGE OTW 1.5 x 20 balloon ([id number]) was prepped and advanced across the Prox LAD, then inflated to 21 JANELLE for 0:10 (min:sec). 10:51:07 SERIES OF 21 JANELLE INFLATIONS 10:53:12 CHOICE ES REMOVED. 10:53:18 WHISPER 300cm guide wire ([id number]) opened to sterile field. 10:53:34 WHISPER 300 wire advanced. 10:55:11 Balloon removed over the wire. 10:57:14 Place stent Inflation Number: 2 A JULIETTE OTW 2.25 x 18 stent ([id number]) was prepped and advanced across the Prox LAD. The stent was deployed at 17 JANELLE for 0:10 (min:sec). 10:57:25 Inflation number: 3 The stent balloon was then re-inflated across the Prox LAD to 17 JANELLE for 0:10 (min:sec). 10:57:47 Stent catheter was removed intact over wire. 10:59:10 Inflate balloon Inflation number: 4 A EUPHORA 3.0 x 15 Balloon ([id number]) was prepped and advanced across the Prox LAD, then inflated to 15 JANELLE for 0:10 (min:sec). 10:59:17 Inflation number: 5 The EUPHORA 3.0 x 15 Balloon ([id number]) was reinflated across the Prox LAD, to 17 JANELLE for 0:10 (min:sec). 10:59:44 Balloon removed over the wire. 11:01:15 Place stent Inflation Number: 6 A JULIETTE RX 3.0 x 18 stent ([id number]) was prepped and advanced across the Prox LAD. The stent was deployed at 0 JANELLE for 0:10 (min:sec). 11::26 Stent catheter was removed intact over wire. 11::26 Wire removed. 11::27 Guide catheter removed. 11:01:32 EXOSEAL 7Fr (EX700) opened to sterile field. 11:01:44 Sheath removed intact; hemostasis achieved with Exoseal to the Right Femoral artery. 11:02:13 Procedure ended.(Physican Out) 11:02:54 Fluoroscopy time 08.00 minutes. 11:02:58 Flurop Dose total: 1219 11::58 Fluoroscopy dose: 1219 mGy 11:03:12 Contrast amount:Isovue 300 127ml. 11:03:16 Post-op/insertion site Right Femoral artery dressed using a 4 x 4 and Tegaderm. 11:03:30 Post-procedure physical assessment completed. ASA score P 2 - A patient with mild systemic disease as per Aung Boothe MD. 11:03:52 Post procedure rhythm: sinus rhythm 11:03:58 Estimated blood loss: 10 ml 11:03:59 Post procedure instruction explained to patient.Patient verbalizes understanding. 11:03:59 Patient needs reinforcement of post procedure teaching. 11:04:16 Procedure type changed to Cath procedure, Diagnostic procedure, LHC, LHC w/Coronaries, Sedation Charges, Moderate Sedation up to 15 minutes, PCI procedure, Coronary Stent, Coronary Stent Initial 11:04:41 Procedure and supply charges have been captured, reviewed, submitted and are correct. 11:04:44 Procedure Complication : No complications 11:04:45 Vital chart was stopped 11:04:45 See physician's report for complete and final results. 11:04:48 Report given to Pre/Post Procedure Room. 11:04:50 Patient transfered to Pre/Post Procedure Room with Bed. 11:04:52 Procedure ended. 11:04:52 Full Disclosure recording stopped 11:04:55 End room use (Document Last) Intervention Summary Intervention Notes Time ActionType Lesion and Equipment Used Action# Pressure Duration Attributes 10:50:50 Inflate Prox LAD EMERGE OTW 1.5 1 21 00:10 balloon x 20 balloon ([id number]) 10:57:14 Place stent Prox LAD JULIETTE OTW 2.25 2 17 00:10 x 18 stent ([id number]) 10:57:25 Reinflate Prox LAD JULIETTE OTW 2.25 3 17 00:10 stent x 18 stent balloon ([id number]) 10:59:10 Inflate Prox LAD EUPHORA 3.0 x 4 15 00:10 balloon 15 Balloon ([id number]) 10:59:17 Reinflate Prox LAD EUPHORA 3.0 x 5 17 00:10 balloon 15 Balloon ([id number]) 11:01:15 Place stent Prox LAD JULIETTE RX 3.0 x 6 0 00:10 18 stent ([id number]) Device Usage Item Name Manufacture Quantity Catalog Number Hospital Part Current Minimal Lot# / Charge Number Stock Stock Serial# Code ACIST Syringe Acist 1 87432 509564 194623 795047 20 (20264) Medical Systems Pluristem Therapeutics Bag Decanter Microtek 1 2001S 688993 99613 714792 5 (2001S) Medical Inc. ACIST Hand Acist 1 04970 654973 623236 675189 5 Control Medical (76756) Systems Inc ACIST Manifold Acist 1 45510 213262 198154 212007 5 (84545) Medical Systems Inc Tegaderm 4 x 4 3M 1 1626W 621838 112467 174841 5 (1626W) Medline Cath Medline 1 [id number] 733349 80862 823169 5 Pack ([id number]) DIAGNOSTIC St Mat[place]o 1 232985 660760 982391 095995 30 WIRE .035 260cm J wire (582771) DIAGNOSTIC Cardinal 1 AG0801 142143 14629 027677 30 Multipack 5Fr Health catheter set (YM0644) SHEATH 5FR Terumo 1 POK394 624650 345038 454384 5 [place] (WIR345) MULTIPACK Cardinal 1 075104 5 Pigtail 5 Fr Health catheter MULTIPACK JL Cardinal 1 644678 5 4.0 5Fr Health catheter MULTIPACK 3DRC Cardinal 1 394593 5 5Fr catheter Health INFLATOR Merit Merit 1 MV3352 195307 602443 509379 15 Apple Seeds (KB5108) CHOICE PT [place] 1 [id number] 07228220181214 981961 5 Extra Support Scientific J 300cm guide wire ([id number]) SHEATH 7FR Terumo 1 QEZ318 202022 774996 079534 5 [place] (DRE066) GUIDE 7FR EBU Medtronic 1 [id number] 233007 953236 638339 0 3.5 catheter ([id number]) GUIDE 7FR EBU Medtronic 1 [id number] 953053 333752 461780 0 4.0 catheter (AY7HEN56) EMERGE OTW 1.5 [place] 1 [id number] 098404 597793 016985 5 [id number] x 20 balloon Scientific ([id number]) WHISPER 300cm Vergara 1 [id number] 864687 456588 026263 5 guide wire Vascular ([id number]) JULIETTE OTW 2.25 Medtronic 1 [id number] 003928 19823 567517 5 [id number] x 18 stent ([id number]) EUPHORA 3.0 x Medtronic 1 [id number] 071946 574785 110690 5 [id number] 15 Balloon ([id number]) JULIETTE RX 3.0 x Medtronic 1 [id number] 055253 6886879 996104 5 [id number] 18 stent ([id number]) EXOSEAL 7Fr Cardinal 1 EX700 956921 737622 815338 5 (EX700) Health Signature Audit Paloma Stage Time Signature Unsigned Intra-Procedure 08/04/2018 Teresa Rivas 11:07:24 AM RT(R) Signatures Monitor : Teresa Rivas Signature : RT Date : Time : [facility] [address] [facility] [place] [address]
[~2018-08-04 09:08] MED LIST: BASAGLAR K100 UNIT/1 SC; CASODEX50 MG; HYDROCHLOROTHIA25 MG PO; LOPRESSOR25 MG PO; NORVASC5 MG PO; PLAVIX75 MG PO; POTASSIUM CHLO10 ME1 PO; PRAVACHOL20 MG PO; PRINIVIL20 MG PO; SYNTHROID50 MCG PO
[2018-08-04] MEDS ORDERED: PENICILLIN V P500 MG PO (09:27)
[2018-08-04] MEDS ORDERED: ALEVE220 MG PO (09:28)
[2018-08-04 09:35] VITALS: BP 130/79; Ht 167.6 cm; Wt 79.5 kg
[2018-08-04 09:53] LABS: BASOPHILS 0.6 % (0-2); EOSINOPHILS 3.5 % (0-7); HEMOGLOBIN 14.2 g/dL (13.5-17.5); IMMATURE GRANULOCYTES 0.2 % (0-5); LYMPHOCYTES 26.8 % (15-50); MCH 28.3 pg (26.0-34.0); MCV 85.7 fL (80.0-100.0); MEAN PLATELET VOLUME 11.4 fL (7.4-10.4); MONOCYTES 10.5 % (2-11); NEUTROPHILS 58.4 % (40-80); PLATELET COUNT 188 10x3/uL (130-400); RBC 5.02 10x6/uL (4.20-6.10); RDW 14.8 % (11.5-14.5); WBC 8.3 10x3/uL (4.8-10.8)
[2018-08-04 10:03] LABS: ANION GAP 17.8 mmol/L (8-16); CALCIUM 9.3 mg/dL (8.5-10.1); CARBON DIOXIDE 25.2 mmol/L (21.0-32.0); CREATININE - SERUM 1.6 mg/dL (0.6-1.3)
--- NOTE | 2018-08-04 11:45 | NUR ---
DR ORLANDO BAKER AND SPOKE WITH PT AND PT'S FAMILY. THEY VOICED UNDERSTANDING.
[2018-08-04] MEDS ORDERED: PLAVIX75 MG PO (11:52)
[2018-08-04] MEDS ORDERED: BAYER CHEWABLE81 MG PO (11:52)
--- NOTE | 2018-08-04 12:15 | NUR ---
PT IN REVERSE TREND. HAVING INCREASE IN SECRECTIONS CAUSING HIM TO FEEL LIKE HE IS CHOKING. O2 SAT STABLE AT 95%. RIGHT GROIN DRESSING C/D/I. NO S/S OF HEMATOMA NOTED. RIGHT PEDAL PULSE PALPABLE. PT INSTRUCTED TO KEEP HEAD FLAT ON PILLOW AND RIGHT LEG STRAIGHT. PLACE HAND TO RIGHT GROIN WHEN COUGHING. HE VOICED UNDERSTANDING.
--- NOTE | 2018-08-04 12:45 | NUR ---
RIGHT GROIN DRESSING C/D/I. PT MORE ALERT. LESS COUGHING. VSS.
--- NOTE | 2018-08-04 13:15 | NUR ---
PT RESTING COMFORTABLY. VSS. RIGHT GROIN DRESSING C/D/I. NO S/S OF HEMATOMA NOTED. RIGHT PEDAL PULSE PALPABLE.
--- NOTE | 2018-08-04 14:00 | NUR ---
RIGHT GROIN DRESSING C/D/I. NO S/S OF HEMATOMA NOTED. HEAD OF BED INC TO 30 DEGREES. PT TOLERATED WELL. FAMILY AT BEDSIDE. PT SET UP WITH SANDWICH TRAY AND DRINK.
--- NOTE | 2018-08-04 14:37 | NUR ---
LEFT ARM PIV D/C'D WITH CATH TIP INTACT. PT TOLERATED WELL. RIGHT GROIN DRESSING C/D/I. NO S/S OF HEMATOMA. PT INSTRUCTED TO GET UP AND GET DRESSED. CALL LIGHT WITHIN REACH.
--- NOTE | 2018-08-04 14:40 | NUR ---
PT TO RESTROOM. VOIDED WITHOUT DIFFICULTY.
--- NOTE | 2018-08-04 14:45 | NUR ---
DISCUSSED DISCHARGE INSTRUCTIONS WITH PT AND PT'S DAUGHTER. THEY VOICED UNDERSTANDING. RIGHT GROIN DRESSING C/D/I. NO S/S OF HEMATOMA NOTED.
--- NOTE | 2018-08-04 14:55 | NUR ---
PT TAKEN OUT BY WHEELCHAIR TO VEHICLE. NO S/S OF DISTRESS NOTED. ALL BELONGINGS IN HAND.
--- NOTE | 2018-08-04 15:00 | NUR ---
CALLED AND NOTIFIED RICHARDSON IN OFFICE OF PT TO RETURN NEXT THURSDAY FOR PLANNED FIX OF RCA. SHE STATES SHE WILL CALL THE PT WITH HIS TIME.
--- NOTE | 2018-08-10 11:18 | OP ---
PATIENT NAME: KB GERMAN MEDICAL RECORD: [id number] :[birth year] LOCATION:[facility] ADMISSION DATE: SURGEON: ELFEGO PERRY MD DATE OF OPERATION: 08/04/2018 PROCEDURES: 1. PTCA stent LAD. 2. Left heart catheterization. 3. Selective coronary angiography. 4. Left ventriculogram. INDICATION: Angina and coronary artery disease. PROCEDURE IN DETAIL: After informed consent was obtained and after a detailed description of the risks, benefits as well as alternative therapies, the patient elected to proceed with angiogram and angioplasty. The right femoral area was prepped and draped in normal sterile fashion. Right femoral artery was cannulated via modified Seldinger technique with placement of 6-Indonesian sheath. All catheters exchanged through this sheath. FINDINGS: The left ventriculogram was performed in standard 30-degree RANDLE view, reveals anteroapical hypokinesis, ejection fraction in the 40% range. SELECTIVE CORONARY ANGIOGRAPHY: 1. Left main is with no significant angiographic disease. 2. Left anterior descending has previously placed stents proximally. This is closed. 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 3. Left circumflex is small, nondominant with no significant disease. 4. Right coronary artery is very large, dominant with a 70% to 80% stenosis proximally. PTCA STENT OF THE LAD: We were able to traverse the total occlusion with a Choice PT extra support wire ballooning this with a 1.5 and 2.0 balloon. Stenting with a 2.25 x 18 and 3.0 x 18 mm David stent. Result was 0% residual stenosis. OVERALL IMPRESSION: Successful percutaneous transluminal coronary angioplasty stent of the left anterior descending going from 100% chronic total occlusion to 0% residual. PLAN: For PTCA stent of the RCA in the near future. TRANSINT:[id number] Voice Confirmation ID: [id number] DOCUMENT ID: [id number] ELFEGO PERRY MD at 1118 CC: [id number] DICTATION DATE: 08/04/18 1128 FLOOR LAYER APPRENTICE: 08/04/18 1252 DEP CLI 08/04/18 [place] [address]
== END 2018-08-04 14:55 | disposition home or self-care (01) ==
LOC: D.CATH 09:08
PROVIDERS: Internal Medicine Interventional Cardiology
DX: I25.119 Atherosclerotic heart disease of native coronary artery with unspecified angina pectoris (principal); I25.82 Chronic total occlusion of coronary artery; Z01.812 Encounter for preprocedural laboratory examination
CPT/HCPCS: 93458; C9600